=== PATIENT | male | born 1980 | race African-American/Black ===

== ENCOUNTER 2023-04-28 14:21 | Emergency (ER) | payer OTHER ==
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
[2023-04-28] MEDS ORDERED: NEOMYCIN/BAC/POLY OPTH 3.5GM ONE (15:17)
[2023-04-28 15:44] VITALS: BP 138/77; O2SAT 100
== END 2023-04-28 15:19 | disposition home or self-care (01) ==
LOC: ER 14:21
DX: T20.27XA Burn of second degree of neck, initial encounter (principal); T20.20XA Burn of second degree of head, face, and neck, unspecified site, initial encounter; T20.25XA Burn of second degree of scalp [any part], initial encounter; T31.0 Burns involving less than 10% of body surface; Z72.0 Tobacco use
CPT/HCPCS: 99284